=== PATIENT | female | born 1960 | race Caucasian/White ===

== ENCOUNTER 2023-12-22 02:28 | Inpatient (IN) | payer OTHER, MEDICAID, MEDICARE ==
[~2023-12-22] VITALS: Ht 167.6 cm; Wt 91.2 kg
[2023-12-22 02:39] VITALS: O2SAT 98
[2023-12-22] MEDS: VANCOMYCIN 1G PREMIX 200 ML IV ONE (03:15)
[2023-12-22] MEDS ORDERED: PIPERACILLIN/TAZO 3.375G/50ML 50 ML IV ONE (03:15)
[2023-12-22] MEDS: SODIUM CHLORIDE 0.9% 1000ML BAG (SEPSIS BOLUS) IV ONE (04:00)
[2023-12-22 04:19] LABS: HEMATOCRIT. 26.6 % (36.0-48.0); HEMOGLOBIN. 8.9 g/dL (12.0-16.0); MEAN CORPUSCULAR HEMOGLOBIN 28.7 pg (28.0-32.0); MEAN CORPUSCULAR HGB CONC 33.6 g/dL (31.0-37.0); MEAN CORPUSCULAR VOLUME 85.4 fL (81.0-99.0); MEAN PLATELET VOLUME 7.4 fl (7.4-10.4); PLATELET 152 x1000/uL (130-400); RED BLOOD CELL COUNT 3.11 mill/uL (4.2-5.4); RED CELL DISTRIBUTION WIDTH 16.4 % (11.6-14.6)
[2023-12-22 04:26] LABS: DIFFERENTIAL COMMENT 1
[2023-12-22 04:27] LABS: WHITE BLOOD COUNT 0.2 x1000/uL (4.5-11.0)
[2023-12-22 04:29] LABS: CHLORIDE 102 mEq/L (98-107); SODIUM 140 mEq/L (136-145)
[2023-12-22 04:30] LABS: CARBON DIOXIDE 28 mEq/L (21-32); INR 1.8; PARTIAL THROMBOPLASTIN TIME 34.1 sec (23.4-31.0); PROTHROMBIN TIME 19.6 sec (9.6-11.0)
[2023-12-22 04:31] LABS: CALCIUM 8.8 mg/dL (8.7-10.4)
[2023-12-22] MEDS: PIPERACILLIN/TAZO 3.375G/50ML 50 ML IV NR (04:31)
[2023-12-22 04:35] LABS: CREATININE 1.1 mg/dL (0.6-1.0); GLUCOSE 192 mg/dL (70-105)
[2023-12-22 04:36] LABS: AMMONIA < 17 uMol/L (<32); UREA NITROGEN BLOOD 19 mg/dL (9-23)
[2023-12-22 04:37] LABS: ALANINE AMINOTRANSFERASE 7 IU/L (10-49); ALBUMIN 3.8 g/dL (3.2-4.8); ASPARTATE AMINOTRANSFERASE 14 IU/L (<34)
[2023-12-22 04:38] LABS: BILIRUBIN TOTAL 0.6 mg/dL (0.1-1.0)
[2023-12-22 04:50] LABS: POTASSIUM 2.7 mEq/L (3.5-5.1); TROPONIN I HIGH SENSITIVITY 100 ng/L (3.0-34)
[2023-12-22] MEDS ORDERED: ACETAMINOPHEN 325MG TABLET PO PRN (08:30)
[2023-12-22] MEDS ORDERED: MEROPENEM 1G/100ML 100 ML IV SCH (08:30)
[2023-12-22] MEDS: KCL 20MEQ/100ML PREMIX 100 ML IV ONE (08:30)
[2023-12-22] MEDS ORDERED: FILGRASTIM 300 MCG/ML VIAL SUBCUT SCH (09:00)
[2023-12-22] MEDS: ASPIRIN 81MG EC TABLET PO SCH (09:00)
[2023-12-22] MEDS: DEXT 5% IV ONE (09:30)
[2023-12-22] MEDS: POTASSIUM CHLORIDE IV ONE (09:30)
[2023-12-22] MEDS: WATER IV ONE (09:30)
[2023-12-22] MEDS: ENOXAPARIN 40MG/0.4ML SYR SUBCUT SCH (10:00)
[2023-12-22 10:03] LABS: ANISOCYTOSIS 1+; NUCLEATED RED BLOOD CELLS 1 /100 WBC; PLATELET ESTIMATE NORMAL
[2023-12-22 12:35] LABS: POTASSIUM 2.6 mEq/L (3.5-5.1)
[2023-12-22] MEDS: MEROPENEM 1G/100ML IV SCH (12:37)
[2023-12-22] MEDS: VANCOMYCIN 1G PREMIX 200 ML IV SCH (12:38)
[2023-12-22] MEDS: ACETAMINOPHEN 650MG/20.3ML UDC PO PRN (12:39)
[2023-12-22] MEDS: FILGRASTIM-TBO 480 MCG/0.8 ML SYRINGE SQ SCH (12:39)
[2023-12-22] MEDS ORDERED: MEROPENEM 500MG/50ML 50 ML IV SCH (14:00)
[2023-12-22] MEDS: DEXT 5%/0.45% NACL KCL 20MEQ/L 1,000 ML IV SCH (15:20)
[2023-12-22] MEDS: POTASSIUM CHLORIDE 20MEQ TABLET SR PO SCH ×2 (15:20→19:56)
[2023-12-22 16:41] LABS: CARBON DIOXIDE 26 mEq/L (21-32); CHLORIDE 106 mEq/L (98-107); SODIUM 141 mEq/L (136-145)
[2023-12-22 16:47] LABS: GLUCOSE 200 mg/dL (70-105); UREA NITROGEN BLOOD 16 mg/dL (9-23)
[2023-12-22 16:48] LABS: ALANINE AMINOTRANSFERASE 8 IU/L (10-49)
[2023-12-22 16:49] LABS: ALBUMIN 3.1 g/dL (3.2-4.8); ASPARTATE AMINOTRANSFERASE 15 IU/L (<34); BILIRUBIN TOTAL 0.5 mg/dL (0.1-1.0); POTASSIUM 2.3 mEq/L (3.5-5.1); PROTEIN TOTAL 5.3 g/dL (6.0-8.3)
[2023-12-22 16:52] LABS: TROPONIN I HIGH SENSITIVITY 206 ng/L (3.0-34)
[2023-12-22 17:06] LABS: HEMATOCRIT. 22.6 % (36.0-48.0); HEMOGLOBIN. 7.4 g/dL (12.0-16.0); MEAN CORPUSCULAR HEMOGLOBIN 27.3 pg (28.0-32.0); MEAN CORPUSCULAR HGB CONC 32.5 g/dL (31.0-37.0); MEAN CORPUSCULAR VOLUME 84.2 fL (81.0-99.0); MEAN PLATELET VOLUME 7.9 fl (7.4-10.4); PLATELET 95 x1000/uL (130-400); RED BLOOD CELL COUNT 2.69 mill/uL (4.2-5.4)
[2023-12-22 17:09] LABS: DIFFERENTIAL COMMENT 1
[2023-12-22 17:18] LABS: WHITE BLOOD COUNT 0.2 x1000/uL (4.5-11.0)
[2023-12-22 18:00] VITALS: BP 115/59; PULSE 101; RESP 20; TEMP 36.3918
[2023-12-22 19:00] VITALS: BP 115/59; PULSE 101; RESP 20; TEMP 36.418
[2023-12-22 20:00] VITALS: BP 117/60; PULSE 108; RESP 23; TEMP 38.66976; O2SAT 96
[2023-12-22] MEDS: KCL 20MEQ/100ML PREMIX 100 ML IV NR (21:09)
[2023-12-22 21:48] LABS: TROPONIN I HIGH SENSITIVITY 203 ng/L (3.0-34)
[2023-12-22 21:53] LABS: TROPONIN I HIGH SENSITIVITY 202 ng/L (3.0-34)
[2023-12-22 22:00] VITALS: BP 98/60; PULSE 94; RESP 18; O2SAT 97
[2023-12-22 22:50] LABS: ANISOCYTOSIS 1+; PLATELET ESTIMATE DECREASED
[2023-12-23] VITALS (14 sets, daily range): BP systolic 92–144; BP diastolic 42–83; PULSE 90–107; RESP 12–27; TEMP 37.00296–37.2252; O2SAT 95–99
[2023-12-23 01:38] LABS: TROPONIN I HIGH SENSITIVITY 176 ng/L (3.0-34)
[2023-12-23 05:52] LABS: CHLORIDE 108 mEq/L (98-107); POTASSIUM 3.2 mEq/L (3.5-5.1); SODIUM 140 mEq/L (136-145)
[2023-12-23 05:53] LABS: CARBON DIOXIDE 25 mEq/L (21-32)
[2023-12-23 05:56] LABS: URIC ACID 4.4 mg/dL (3.1-7.8)
[2023-12-23 05:58] LABS: CREATININE 1.2 mg/dL (0.6-1.0)
[2023-12-23 05:59] LABS: GLUCOSE 163 mg/dL (70-105); UREA NITROGEN BLOOD 21 mg/dL (9-23)
[2023-12-23 06:00] LABS: ALANINE AMINOTRANSFERASE 8 IU/L (10-49); ALBUMIN 3.3 g/dL (3.2-4.8); LACTATE DEHYDROGENASE 194 IU/L (120-246)
[2023-12-23 06:01] LABS: ASPARTATE AMINOTRANSFERASE 11 IU/L (<34); BILIRUBIN DIRECT 0.2 mg/dL (<=3.0); BILIRUBIN TOTAL 0.4 mg/dL (0.1-1.0); PROTEIN TOTAL 5.4 g/dL (6.0-8.3)
[2023-12-23 06:27] LABS: HEMATOCRIT. 24.5 % (36.0-48.0); HEMOGLOBIN. 7.8 g/dL (12.0-16.0); MEAN CORPUSCULAR HEMOGLOBIN 27.7 pg (28.0-32.0); MEAN CORPUSCULAR VOLUME 86.7 fL (81.0-99.0); MEAN PLATELET VOLUME 7.8 fl (7.4-10.4); PLATELET 63 x1000/uL (130-400); RED BLOOD CELL COUNT 2.83 mill/uL (4.2-5.4); RED CELL DISTRIBUTION WIDTH 16.2 % (11.6-14.6)
[2023-12-23 06:49] LABS: DIFFERENTIAL COMMENT 1
[2023-12-23 06:55] LABS: WHITE BLOOD COUNT 0.3 x1000/uL (4.5-11.0)
[2023-12-23 07:07] LABS: CLARITY URINE CLOUDY (CLEAR); COLOR URINE YELLOW (YELLOW); GLUCOSE URINE 3+ (NEGATIVE); KETONES URINE TRACE (NEGATIVE); LEUKOCYTE ESTERASE URINE NEGATIVE (NEGATIVE); NITRITE URINE POSITIVE (NEGATIVE); OCCULT BLOOD URINE 3+ (NEGATIVE); PH URINE 5.5 (4.5-8.0); PROTEIN URINE 2+ (NEGATIVE); SPECIFIC GRAVITY URINE 1.013 (1.005-1.030)
[2023-12-23 08:02] LABS: BACTERIA URINE 1+; SQUAMOUS EPITHELIAL CELL URINE RARE /lpf (RARE/1+)
[2023-12-23 08:03] LABS: RBC URINE 15-25 /hpf (0-2); WBC URINE 0-2 /hpf (0-2)
[2023-12-23] MEDS ORDERED: LIDOCAINE HCL 1% 10 MG/ML 10ML VIAL ONE (10:16)
[2023-12-23] MEDS: VANCOMYCIN 1.25GM/250ML 250 ML IV SCH (16:48)
[2023-12-23] MEDS: ONDANSETRON HCL 4MG/2ML INJ IV PRN (19:22)
[2023-12-23 21:18] LABS: ANISOCYTOSIS 1+; PLATELET ESTIMATE DECREASED
[2023-12-23] MEDS: FILGRASTIM-TBO 480 MCG/0.8 ML SYRINGE SQ SCH (21:20)
[2023-12-24] VITALS (12 sets, daily range): BP systolic 116–140; BP diastolic 61–78; PULSE 81–102; RESP 13–25; TEMP 37.00296–37.2252; O2SAT 95–99
[2023-12-24 06:09] LABS: CHLORIDE 110 mEq/L (98-107); POTASSIUM 3.6 mEq/L (3.5-5.1); SODIUM 138 mEq/L (136-145)
[2023-12-24 06:10] LABS: CALCIUM 7.7 mg/dL (8.7-10.4); CARBON DIOXIDE 22 mEq/L (21-32)
[2023-12-24 06:15] LABS: CREATININE 0.8 mg/dL (0.6-1.0); GLUCOSE 138 mg/dL (70-105); UREA NITROGEN BLOOD 15 mg/dL (9-23)
[2023-12-24 06:44] LABS: HEMATOCRIT 22.3 % (36.0-48.0); HEMOGLOBIN 7.2 g/dL (12.0-16.0); MEAN CORPUSCULAR HEMOGLOBIN 27.5 pg (28.0-32.0); MEAN CORPUSCULAR HGB CONC 32.2 g/dL (31.0-37.0); MEAN CORPUSCULAR VOLUME 85.3 fL (81.0-99.0); RED BLOOD CELL COUNT 2.61 mill/uL (4.2-5.4); RED CELL DISTRIBUTION WIDTH 16.4 % (11.6-14.6)
[2023-12-24 09:12] LABS: PLATELET 49 x1000/uL (130-400); WHITE BLOOD COUNT 1.3 x1000/uL (4.5-11.0)
[2023-12-24] MEDS: CEFTAZIDIME PENTAHYDRATE 2 G in DEXT 5% WATER 100 ML IV SCH (21:00)
[2023-12-24] MEDS: METRONIDAZOLE 500MG TABLET PO SCH (21:17)
[2023-12-25] VITALS (12 sets, daily range): BP systolic 113–141; BP diastolic 64–86; PULSE 81–98; RESP 17–27; TEMP 36.78072–37.66968; O2SAT 95–99
[2023-12-25 07:25] LABS: CARBON DIOXIDE 22 mEq/L (21-32); CHLORIDE 109 mEq/L (98-107); POTASSIUM 4.2 mEq/L (3.5-5.1); SODIUM 138 mEq/L (136-145)
[2023-12-25 07:26] LABS: CALCIUM 8.5 mg/dL (8.7-10.4)
[2023-12-25 07:31] LABS: CREATININE 0.8 mg/dL (0.6-1.0); GLUCOSE 131 mg/dL (70-105); UREA NITROGEN BLOOD 13 mg/dL (9-23)
[2023-12-25 07:50] LABS: HEMATOCRIT 23.2 % (36.0-48.0); HEMOGLOBIN 7.7 g/dL (12.0-16.0); MEAN CORPUSCULAR HEMOGLOBIN 28.4 pg (28.0-32.0); MEAN CORPUSCULAR HGB CONC 33.1 g/dL (31.0-37.0); MEAN CORPUSCULAR VOLUME 85.8 fL (81.0-99.0); PLATELET 53 x1000/uL (130-400); RED CELL DISTRIBUTION WIDTH 16.2 % (11.6-14.6); WHITE BLOOD COUNT 2.5 x1000/uL (4.5-11.0)
[2023-12-26] VITALS (10 sets, daily range): BP systolic 125–148; BP diastolic 70–89; PULSE 80–101; RESP 18–23; TEMP 36.28068–37.16964; O2SAT 93–98
[2023-12-26 07:01] LABS: CARBON DIOXIDE 26 mEq/L (21-32); CHLORIDE 105 mEq/L (98-107); POTASSIUM 4.1 mEq/L (3.5-5.1); SODIUM 138 mEq/L (136-145)
[2023-12-26 07:02] LABS: CALCIUM 9.2 mg/dL (8.7-10.4)
[2023-12-26 07:07] LABS: CREATININE 0.7 mg/dL (0.6-1.0); GLUCOSE 136 mg/dL (70-105); UREA NITROGEN BLOOD 12 mg/dL (9-23)
[2023-12-26 07:31] LABS: HEMOGLOBIN 8.5 g/dL (12.0-16.0); MEAN CORPUSCULAR HEMOGLOBIN 27.5 pg (28.0-32.0); MEAN CORPUSCULAR HGB CONC 32.6 g/dL (31.0-37.0); MEAN CORPUSCULAR VOLUME 84.3 fL (81.0-99.0); PLATELET 74 x1000/uL (130-400); RED BLOOD CELL COUNT 3.08 mill/uL (4.2-5.4); RED CELL DISTRIBUTION WIDTH 15.9 % (11.6-14.6); WHITE BLOOD COUNT 7.3 x1000/uL (4.5-11.0)
[2023-12-26] MEDS ORDERED: METR-167 PO (12:16)
[2023-12-26] MEDS ORDERED: LEVO-65 MT (12:16)
== END 2023-12-26 19:20 | disposition home or self-care (01) | DRG 809 ==
LOC: ER 02:33 → 5WST 05:18 → 5EST 17:45
PROVIDERS: ADMIT Internal Medicine; ATTEND Internal Medicine
PROC: 02HV33Z Insertion of Infusion Device into Superior Vena Cava, Percutaneous Approach (ICD-10-PCS; principal; 2023-12-23)
PROC: B548ZZA Ultrasonography of Superior Vena Cava, Guidance (ICD-10-PCS; 2023-12-23)
DX: D70.1 Agranulocytosis secondary to cancer chemotherapy (principal); C85.93 Non-Hodgkin lymphoma, unspecified, intra-abdominal lymph nodes; N39.0 Urinary tract infection, site not specified; D68.9 Coagulation defect, unspecified; D61.818 Other pancytopenia; T45.1X5A Adverse effect of antineoplastic and immunosuppressive drugs, initial encounter; E87.6 Hypokalemia; R50.81 Fever presenting with conditions classified elsewhere; I27.20 Pulmonary hypertension, unspecified; Y92.89 Other specified places as the place of occurrence of the external cause; Z79.899 Other long term (current) drug therapy; D63.0 Anemia in neoplastic disease
CPT/HCPCS: 36415; 36573; 71045; 74176; 80048; 80053; 80076; 80202; 81003; 82140; 83605; 83615; 83880; 84132; 84145; 84484; 84550; 85025; 85027; 86850; 86900; 87070; 87186; 93005; 93306; 99291; C1725; J0713; J1442; J1650; J2185; J2405; J2543; J3370; J3480; J3490; J7030; J7060